=== PATIENT | male | born 1930 ===

== ENCOUNTER 2018-01-01 08:29 | Day surgery (SDC) | payer OTHER ==
[2018-01-01] MEDS ORDERED: Iodixanol 320 MG/ML 100 ML BOTTLE IV ONE ×2 (08:35→09:52)
[2018-01-01 08:57] VITALS: BMI 22.8
[2018-01-01 10:04] LABS: CALCIUM 9.1 mg/dl (8.6-10.4)
[2018-01-01 10:24] LABS: PROTHROMBIN TIME 11.3 SECONDS (9.7-12.2)
[2018-01-01] MEDS ORDERED: Midazolam 2 MG/2 ML VIAL ONE (11:08)
[2018-01-01] MEDS ORDERED: Verapamil 2 ML ONE (11:08)
[2018-01-01] MEDS ORDERED: Sodium Chloride 0.9% 500 ML IV SCH (13:15)
== END 2018-01-01 17:55 | disposition home or self-care (01) ==
LOC: C.CATHLAB 08:29
PROVIDERS: ATTEND Internal Medicine Interventional Cardiology
DX: I25.110 Atherosclerotic heart disease of native coronary artery with unstable angina pectoris (principal); Z88.0 Allergy status to penicillin; I12.9 Hypertensive chronic kidney disease with stage 1 through stage 4 chronic kidney disease, or unspecified chronic kidney disease; N18.9 Chronic kidney disease, unspecified; N40.0 Benign prostatic hyperplasia without lower urinary tract symptoms; Z86.718 Personal history of other venous thrombosis and embolism; I69.351 Hemiplegia and hemiparesis following cerebral infarction affecting right dominant side; Z79.02 Long term (current) use of antithrombotics/antiplatelets; Z79.899 Other long term (current) drug therapy; Z79.82 Long term (current) use of aspirin; Z87.891 Personal history of nicotine dependence; I69.392 Facial weakness following cerebral infarction; E78.00 Pure hypercholesterolemia, unspecified
CPT/HCPCS: 36415; 80048; 85610; 85730; 93452; C1887; J1644; J2001; J2250; J3010; J7040; Q9967